=== PATIENT | female | born 1980 | race Caucasian/White ===

== ENCOUNTER 2016-08-09 13:12 | Emergency (ER) | payer OTHER, SELFPAY ==
[2016-08-09] MEDS ORDERED: Famotidine 20 MG TAB ONE (13:45)
[2016-08-09] MEDS ORDERED: Ibuprofen 800 MG TAB ONE (14:04)
[2016-08-09 14:15] LABS: Amylase 43 U/L (25-125); Anion Gap 15 mmol/L (10-20); BUN (Urea Nitrogen) 21 mg/dL (7.0-18.7); Calc. Creatinine Clearance 0 mL/min (70-130); Calcium 9.5 mg/dL (7.8-10.44); Carbon Dioxide 28 mmol/L (22-29); Chloride 102 mmol/L (98-107); Estimated GFR-MDRD 48; Glucose 88 mg/dL (70-105); Hemoglobin 8.4 g/dL (12.0-16.0); Mean Corpuscular HGB CONC 29.8 g/dL (32.0-36.0); Mean Corpuscular Hemoglobin 20.2 pg (27.0-31.0); Mean Corpuscular Volume 67.6 fL (81.0-99.0); Mean Platelet Volume 7.1 fL (7.4-10.4); Platelet Count 267 thou/uL (130-400); Potassium 3.6 mmol/L (3.5-5.1); RBC Distribution Width 16.6 % (11.5-14.5); Red Blood Cell (RBC) Count 4.17 mill/uL (4.20-5.40); Sodium 141 mmol/L (136-145); White Blood Cell (WBC) Count 7.8 thou/uL (4.8-10.8)
[2016-08-09 14:16] LABS: Manual Diff?? YES
[2016-08-09 14:29] LABS: Band 1 % (5-11); Eosinophils 1 % (0-10); Hypochromia MODERATE=16-30 cells (100X) (0-5/hpf); Lymphocytes 30 % (21-51); MDiff Complete? YES; Microcytosis SLIGHT = 6-15 cells (100X) (0-5/hpf); Monocytes 4 % (0-10); Neutrophil 64 % (42-75)
[2016-08-09 14:30] LABS: Anisocytosis SLIGHT = 6-15 cells (100X) (0-5/hpf); PLT Morphology Comment Appears Adequate
[2016-08-09] MEDS ORDERED: Mag-Al Plus 1200 MG/1200 MG/120 MG/30 ML UDCUP ONE (14:33)
[2016-08-09] MEDS ORDERED: Lidocaine Viscous Sol 2% 15 ml UD Cup ONE (14:33)
== END 2016-08-09 14:48 | disposition home or self-care (01) ==
LOC: MADERS 13:12
DX: K21.9 Gastro-esophageal reflux disease without esophagitis (principal); E11.9 Type 2 diabetes mellitus without complications; I10 Essential (primary) hypertension; F31.9 Bipolar disorder, unspecified; F17.210 Nicotine dependence, cigarettes, uncomplicated; Z79.4 Long term (current) use of insulin; Z79.899 Other long term (current) drug therapy
CPT/HCPCS: 36415; 80048; 82150; 85025; 99284

== ENCOUNTER 2016-11-01 21:43 | Emergency (ER) | payer OTHER, SELFPAY ==
--- NOTE | 2016-11-01 22:46 | RAD ---
THREE VIEWS OF THE RIGHT FOOT 11/01/16 COMPARISON: 10/07/15 HISTORY: Right foot pain. FINDINGS: Three views right foot shows the patient to be status post amputation of the great toe through the p roximal metatarsals. There are bony changes involving the distal aspect of the second and third meta tarsals. There are degenerative changes involving the metatarsophalangeal joints of the second, thir d, and fourth toes. Soft tissue swelling is seen. IMPRESSION: The bony changes in the distal metatarsals of the second and third digits may be secondary to chroni c osteomyelitis. POS: [facility]
[2016-11-01] MEDS ORDERED: Acetaminophen/Codeine 30-300mg Tablet ONE (22:59)
== END 2016-11-01 23:04 | disposition home or self-care (01) ==
LOC: MADERS 21:43
DX: L98.9 Disorder of the skin and subcutaneous tissue, unspecified (principal); J44.1 Chronic obstructive pulmonary disease with (acute) exacerbation; E11.9 Type 2 diabetes mellitus without complications; I10 Essential (primary) hypertension; J45.909 Unspecified asthma, uncomplicated; F31.9 Bipolar disorder, unspecified; F17.210 Nicotine dependence, cigarettes, uncomplicated; Z79.4 Long term (current) use of insulin; Z79.899 Other long term (current) drug therapy
CPT/HCPCS: J7620